=== PATIENT | female | born 1970 | race Caucasian/White ===

== ENCOUNTER 2019-12-11 11:15 | Emergency (ER) | payer OTHER ==
--- NOTE | 2019-12-11 12:57 | RAD REPORT ---
EXAM DESCRIPTION: RAD - Chest Single View - 12/11/2019 12:36 pm CLINICAL HISTORY: Cough;Fever COMPARISON: January 2019 TECHNIQUE: AP portable chest image was obtained 12/11/2019 12:36 pm . FINDINGS: Lung volumes are low. No peripheral mass or consolidation. Interstitial pattern matches co mparison. Heart and vasculature are normal. No measurable pleural effusion and no pneumothorax. No ac jhony bony abnormality seen. No acute aortic findings suspected. IMPRESSION: No acute cardiopulmonary process. No significant interval change.
[2019-12-11] MEDS ORDERED: ACETAMINOPHEN 500 MG TAB ONE (14:16)
--- NOTE | 2019-12-11 14:18 | EDPHYS ---
Physician Documentation [facility] Name: Keisha Stanley Age: 49 yrs Sex: Female : 1970 Arrival Date: 12/11/2019 Time: 11:16 Bed 6 Private MD: Frederick Burton R ED Physician Regis Cruz HPI: 12/10 15:27 This 49 yrs old Female presents to ER via Ambulatory with complaints of ms3 General Weakness, Cough, Fever, Sore Throat. 15:27 The patient or guardian reports cough, that is intermittent, described as mild, with ms3 productive sputum, clear. Onset: The symptoms/episode began/occurred gradually. Severity of symptoms: in the emergency department the symptoms are unchanged. Modifying factors: The symptoms are alleviated by nothing, the symptoms are aggravated by nothing. Associated signs and symptoms: Pertinent positives: fever, rhinorrhea, sore throat. 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 iw Historical: - Allergies: 11:43 Morphine; iw 11:43 Amoxicillin; iw - Home Meds: 11:43 Prozac 40 mg Oral cap 1 cap once daily [Active]; levothyroxine 50 mcg tab 1 tab once iw daily [Active]; acyclovir 800 mg Oral tab twice a day [Active]; pravastatin 20 mg oral tab 1 tab once daily [Active]; pantoprazole 40 mg oral TbEC 1 tab once daily [Active]; meloxicam 15 mg oral tab 1 tab once daily [Active]; baclofen 20 mg Oral tab 1 tab 3 times per day [Active]; Multiple Vitamins oral tab [Active]; Vitamin D Oral daily [Active]; 11:44 magnesium oxide 400 mg oral tab daily [Active]; iw - PMHx: 11:44 COPD; Chronic pain; PCOS; Hypothyroidism; iw - PSHx: 11:44 spinal fusion; iw 11:45 Hernia repair; abdominoplasty; iw - Immunization history:: Adult Immunizations up to date. - Social history:: Smoking status: Patient/guardian denies using tobacco, the patient reports quitting approximately 15 years ago, Patient uses street drugs, marijuana. ROS: 14:20 Eyes: Negative for injury, pain, redness, and discharge, Neck: Negative for injury, ms3 pain, and swelling, Cardiovascular: Negative for chest pain, and palpitations. Abdomen/GI: Negative for abdominal pain, nausea, vomiting, diarrhea, and constipation, Back: Negative for injury and pain, MS/Extremity: Negative for injury and deformity, Skin: Negative for injury, rash, and discoloration, Neuro: Negative for headache, weakness, numbness, tingling. 14:20 Constitutional: Positive for fatigue, fever, malaise. 14:20 ENT: Positive for nasal discharge. 14:20 All other systems are negative. ms3 Exam: 14:20 Constitutional: This is a well developed, well nourished patient who is awake, alert, ms3 and in no acute distress. Eyes: Pupils equal round and reactive to light, extra-ocular motions intact. Lids and lashes normal. Conjunctiva and sclera are non-icteric and not injected. Cornea within normal limits. Periorbital areas with no swelling, redness, or edema. Neck: Trachea midline, no cervical lymphadenopathy. Supple, full range of motion without nuchal rigidity, or vertebral point tenderness. No Meningismus. Chest/axilla: Normal chest wall appearance and motion. Nontender with no deformity. Cardiovascular: Regular rate and rhythm with a normal S1 and S2. No gallops, murmurs, or rubs. Normal PMI, no JVD. No pulse deficits. Respiratory: Lungs have equal breath sounds bilaterally, clear to auscultation and percussion. No rales, rhonchi or wheezes noted. No increased work of breathing, no retractions or nasal flaring. Abdomen/GI: Soft, non-tender, with normal bowel sounds. No distension or tympany. No guarding or rebound. No evidence of tenderness throughout. Back: No spinal tenderness. No costovertebral tenderness. Full range of motion. Skin: Warm, dry with normal turgor. Normal color with no rashes, no lesions, and no evidence of cellulitis. Neuro: Awake and alert, GCS 15, oriented to person, place, time, and situation. Cranial nerves II-XII grossly intact. Motor strength 5/5 in all extremities. Sensory grossly intact. Cerebellar exam normal. Normal gait. Psych: Awake, alert, with orientation to person, place and time. Behavior, mood, and affect are within normal limits. 14:20 ENT: Nose: External nose: Nasal septum: Nasal mucosa: normal, nasal drainage, that is clear, Mouth: Oral mucosa: normal, Tongue: is normal, Posterior pharynx: is normal. Vital Signs: 11:39 BP 174 / 95; Pulse 87; Resp 18; Temp 98.2(TE); Pulse Ox 100% on R/A; Weight 65.77 kg; iw Height 5 ft. 2 in. (157.48 cm); 12:49 Pulse 80; Resp 16; Pulse Ox 97% on R/A; mh5 11:39 Body Mass Index 26.52 (65.77 kg, 157.48 cm) iw MDM: 11:51 Patient medically screened. ms3 14:20 Differential Diagnosis: Influenza Upper Respiratory Infection Sinusitis Other COVID. ms3 Data reviewed: vital signs, nurses notes, lab test result(s), Flu: radiologic studies, plain films. Data interpreted: Pulse oximetry:. Counseling: I had a detailed discussion with the patient and/or guardian regarding: the historical points, exam findings, and any diagnostic results supporting the discharge/admit diagnosis, lab results, radiology results, the need for outpatient follow up, to return to the emergency department if symptoms worsen or persist or if there are any questions or concerns that arise at home. ED course: Discussed negative flu and CXR with pt. Pt to follow up with Dr Altman in 2-3 days. Pt understands/ agrees with plan. All questions answered. Return precautions given. Pt a/o x4, nad, non-toxic, speaking full sentences.. 12/10 12:01 Order name: COVID-19 ms3 12/10 12:01 Order name: Flu; Complete Time: 14:17 ms3 12/10 12:01 Order name: CXR XRAY; Complete Time: 13:30 ms3 Administered Medications: 14:16 Drug: Tylenol 1000 mg Route: PO; jl7 Disposition: 14:20 Co-signature as Attending Physician, Regis Cruz DO. ms3 Disposition: 12/11/19 14:18 Discharged to Home. Impression: Fever, unspecified, Cough, Muscle weakness (generalized). - Condition is Stable. - Discharge Instructions: Fever, Adult, COVID-19. - Medication Reconciliation Form, Thank You Letter, Antibiotic Education, Prescription Opioid Use form. - Follow up: Nasim Altman MD; When: 2 - 3 days; Reason: Re-evaluation by your physician. Signatures: Dispatcher [employer] Elena Helms RN RN iw Elvis Wiley RN RN jl7 Regis Cruz DO DO ms3 Corrections: (The following items were deleted from the chart) 14:49 14:18 12/11/2019 14:18 Discharged to Home. Impression: Fever, unspecified; Cough; iw Muscle weakness (generalized). Condition is Stable. Forms are Medication Reconciliation Form, Thank You Letter, Antibiotic Education, Prescription Opioid Use. Follow up: Nasim Altman; When: 2 - 3 days; Reason: Re-evaluation by your physician. ms3
--- NOTE | 2019-12-11 14:18 | ER ---
Nurse's Notes [facility] Name: Keisha Stanley Age: 49 yrs Sex: Female : 1970 Arrival Date: 12/11/2019 Time: 11:16 Bed 6 Private MD: Frederick Burton R Diagnosis: Fever, unspecified;Cough;Muscle weakness (generalized) Presentation: 12/10 11:39 Chief complaint: Patient states: cough, congestion, sore throat, fatigue, subjective iw fever X 3 days, + nausea, mild SOB, no chest pain. Coronavirus screen: Surgical mask placed on patient. Patient moved to private room, placed in contact and droplet isolation with eye protection until further assessment. Patient reports a cough. Patient reports shortness of breath or difficulty breathing. Patient reports a measured and/or subjective temperature greater than 100.4F. Patient denies travel on a cruise ship or to a country the [facility] currently lists as an affected area. Patient denies contact with known and/or suspected case of COVID-19. Ebola Screen: Patient negative for fever greater than or equal to 101.5 degrees Fahrenheit, and additional compatible Ebola Virus Disease symptoms Patient denies exposure to infectious person. Patient denies travel to an Ebola-affected area in the 21 days before illness onset. No symptoms or risks identified at this time. Initial Sepsis Screen: Does the patient meet any 2 criteria? No. Patient's initial sepsis screen is negative. Does the patient have a suspected source of infection? No. Patient's initial sepsis screen is negative. Risk Assessment: Do you want to hurt yourself or someone else? Patient reports no desire to harm self or others. Onset of symptoms was December 08, 2019. 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 iw Historical: - Allergies: 11:43 Morphine; iw 11:43 Amoxicillin; iw - Home Meds: 11:43 Prozac 40 mg Oral cap 1 cap once daily [Active]; levothyroxine 50 mcg tab 1 tab once iw daily [Active]; acyclovir 800 mg Oral tab twice a day [Active]; pravastatin 20 mg oral tab 1 tab once daily [Active]; pantoprazole 40 mg oral TbEC 1 tab once daily [Active]; meloxicam 15 mg oral tab 1 tab once daily [Active]; baclofen 20 mg Oral tab 1 tab 3 times per day [Active]; Multiple Vitamins oral tab [Active]; Vitamin D Oral daily [Active]; 11:44 magnesium oxide 400 mg oral tab daily [Active]; iw - PMHx: 11:44 COPD; Chronic pain; PCOS; Hypothyroidism; iw - PSHx: 11:44 spinal fusion; iw 11:45 Hernia repair; abdominoplasty; iw - Immunization history:: Adult Immunizations up to date. - Social history:: Smoking status: Patient/guardian denies using tobacco, the patient reports quitting approximately 15 years ago, Patient uses street drugs, marijuana. Screenin:20 Abuse screen: Denies threats or abuse. Denies injuries from another. Nutritional jl7 screening: No deficits noted. Tuberculosis screening: No symptoms or risk factors identified. Fall Risk None identified. Assessment: 12:20 General: Appears in no apparent distress. uncomfortable, Behavior is calm, cooperative, jl7 appropriate for age. Pain: Complains of pain in sore throat. Neuro: Level of Consciousness is awake, alert, obeys commands, Oriented to person, place, time, situation. Cardiovascular: Patient's skin is warm and dry. Respiratory: Airway is patent Respiratory effort is even, unlabored, Respiratory pattern is regular, symmetrical. EENT: Throat is clear. Vital Signs: 11:39 BP 174 / 95; Pulse 87; Resp 18; Temp 98.2(TE); Pulse Ox 100% on R/A; Weight 65.77 kg; iw Height 5 ft. 2 in. (157.48 cm); 12:49 Pulse 80; Resp 16; Pulse Ox 97% on R/A; mh5 11:39 Body Mass Index 26.52 (65.77 kg, 157.48 cm) iw ED Course: 11:16 Patient arrived in ED. am2 11:16 Frederick Burton MD is Private Physician. am2 11:41 Triage completed. iw 11:45 Arm band placed on. iw 11:50 Regis Cruz DO is Attending Physician. ms3 12:08 Elvis Wiley, JULISSA is Primary Nurse. jl7 12:20 Flu and/or RSV swab sent to lab. COVID-19 swab sent to lab. jl7 12:37 CXR XRAY In Process Unspecified. EDMS 12:49 Patient has correct armband on for positive identification. Placed in gown. Bed in low mh5 position. Call light in reach. Side rails up X 1. Warm blanket given. Pulse ox on. NIBP on. 14:17 Nasim Altman MD is Referral Physician. ms3 Administered Medications: 14:16 Drug: Tylenol 1000 mg Route: PO; jl7 Outcome: 14:18 Discharge ordered by . ms3 14:49 Patient left the ED. iw Addendum: 12/13/2019 18:30 Addendum: Other Pt notified of negative COVID results, advised to remain quarantined h b until fever free for 3 days without medication or 7 days of s/s onset and to return to ED if s/s worsen. Pt verbalized understanding of instructions. Signatures: Dispatcher [employer] EDMS Elena Gaston RN RN Josie Wang RN RN hb Martinez, [facility] Elvis Wiley RN RN jl7 Mary Rojas Marcus, DO DO ms3 Corrections: (The following items were deleted from the chart) 12/10 12:53 12:20 Flu and/or RSV swab sent to lab. COVID-19 sent to lab jl7 jl7
[2019-12-11 15:06] VITALS: BP 174/95; TEMP 98.2
[2019-12-11 15:08] VITALS: O2SAT 97
== END 2019-12-11 14:49 | disposition home or self-care (01) ==
LOC: ER 11:15
DX: R05 Cough (principal); Z20.828 Contact with and (suspected) exposure to other viral communicable diseases; M62.81 Muscle weakness (generalized); E03.9 Hypothyroidism, unspecified; J44.9 Chronic obstructive pulmonary disease, unspecified; G89.29 Other chronic pain; Z88.1 Allergy status to other antibiotic agents; Z88.5 Allergy status to narcotic agent
CPT/HCPCS: 87804 ×2; 71045; 99284; U0001

== ENCOUNTER 2020-10-02 12:51 | Emergency (ER) | payer OTHER ==
[2020-10-02] MEDS ORDERED: FENTANYL CITR 100 MCG/2 ML ONE ×2 (14:03→17:29)
[2020-10-02] MEDS ORDERED: ONDANSETRON 4 MG/2 ML VIAL ONE (14:03)
[2020-10-02] MEDS ORDERED: TETANUS & DIPHTHERIA TOX,ADULT 0.5 ML VIAL ONE (14:04)
[2020-10-02] MEDS ORDERED: NA CHLORIDE 0.9% 1,000 ML ONE (14:04)
[2020-10-02 14:19] LABS: Absolute Lymphocytes (CBC) 0.9 K/uL (0.7-4.9); Basophils % 0.1 % (0-1.3); Hematocrit 36.8 % (36.0-45.0); Lymphocytes % 8.3 % (15.3-44.8); RBC Red Blood Cell Count 3.67 M/uL (3.86-4.86)
[2020-10-02 14:32] LABS: Albumin 3.5 g/dL (3.4-5.0); Bilirubin Total 0.9 mg/dL (0.2-1.0); Potassium 3.2 mmol/L (3.5-5.1); Protein, Total 8.4 g/dL (6.4-8.2)
--- NOTE | 2020-10-02 14:33 | RAD REPORT ---
EXAM DESCRIPTION: CT - Soft Tissue Neck W/Contr - 10/02/2020 2:16 pm CLINICAL HISTORY: Mandibular pain/neck pain COMPARISON: None. TECHNIQUE: Computed axial tomography of the neck was obtained. 50 cc Isovue 300 was administered in travenously. Coronal and sagittal reconstruction was performed. All CT scans are performed using dose optimization technique as appropriate and may include automated exposure control or mA/KV adjustment according to patient size. FINDINGS: A 5 millimeter air bubble is present within the subcutaneous tissue adjacent to the right mandible at the site of prior incision. A 10 x 7 millimeter ill-defined fluid collection within the a nterior subcutaneous tissue midline adjacent to the mandible. No bony destructive lesions seen The pharynx, tongue base, larynx and subglottic trachea appear unremarkable The parotid, submandibular and thyroid glands appear unremarkable. Fluid within the sinuses/mastoids is not noted. Mild right upper lobe ground-glass opacity indicates a mild area of alveolitis IMPRESSION: 5 millimeter air bubble within the anterior subcutaneous tissues adjacent to the right m andible probably related to previous incision. 10 x 7 millimeter fluid collection within the anterior subcutaneous tissue midline probably small residual abscess or phlegmonous collection
--- NOTE | 2020-10-02 16:37 | EDPHYS ---
Physician Documentation [facility] Name: Keisha Stanley Age: 50 yrs Sex: Female : 1970 Arrival Date: 10/02/2020 Time: 12:55 Bed 5 Private MD: Frederick Burton R ED Physician Haja Batista HPI: 10/02 13:36 This 50 yrs old Female presents to ER via Ambulatory with complaints of pm1 Abscess. 13:36 the patient presents with a swollen area of the chin. pm1 13:36 Onset: The symptoms/episode began/occurred 5 day(s) ago. Possible cause(s): unknown. pm1 Associated signs and symptoms: Pertinent negatives: discharge, drainage, fever, vomiting, sore throat. Severity of symptoms: in the emergency department the symptoms are actually worse. The patient has not experienced similar symptoms in the past. The patient has been recently seen by a physician: 2 day(s) ago, with similar presenting complaints, CT scan was done, was given a prescription for antibiotics, I\T\D performed. Patient with abscess to chin that started about 5 days ago. Went to [place] ER on Saturday and had a CT, subsequently abscess was drained and packed. Discharged home with clindamycin and was started on another antibiotic (patient unable to fully recall but believes it is bactrim) yesterday. Reports improvement to chin yesterday but swelling and pain to chin started this AM. Historical: - Allergies: 13:00 Amoxicillin; ll1 13:00 Morphine; ll1 - PMHx: 13:00 COPD; Hypothyroidism; Chronic pain; PCOS; ll1 - PSHx: 13:00 spinal fusion; Hernia repair; abdominoplasty; ll1 - Immunization history:: Flu vaccine is up to date. - Social history:: Smoking status: Patient denies any tobacco usage or history of. ROS: 13:36 Constitutional: Negative for fever, chills, and weight loss, ENT: Negative for injury, pm1 pain, and discharge, Neck: Negative for injury, pain, and swelling, Cardiovascular: Negative for chest pain, palpitations, and edema, Respiratory: Negative for shortness of breath, cough, wheezing, and pleuritic chest pain, Abdomen/GI: Negative for abdominal pain, nausea, vomiting, diarrhea, and constipation, MS/Extremity: Negative for injury and deformity. 13:36 Neuro: Negative for headache, weakness, numbness, tingling, and seizure. 13:36 Skin: Positive for swelling, of the chin. Exam: 13:36 Constitutional: This is a well developed, well nourished patient who is awake, alert, pm1 and in no acute distress. Head/Face: Normocephalic, atraumatic. 13:36 Cardiovascular: Exam negative for acute changes, Rate: normal, Rhythm: regular, Pulses: no pulse deficits are appreciated. 13:36 Respiratory: Exam negative for acute changes, respiratory distress, shortness of breath. 13:36 Skin: Appearance: normal except for affected area, swelling, noted on the chin, that are mild, cellulitis, is not appreciated, on the face and chin. Vital Signs: 13:00 BP 156 / 95; Pulse 118; Resp 17; Temp 97.0; Pulse Ox 98% ; Weight 68.04 kg; Height 5 ll1 ft. 2 in. (157.48 cm); Pain 5/10; 14:26 BP 145 / 83; Pulse 101; Resp 16; Pulse Ox 100% on R/A; sv 15:02 BP 127 / 71; Pulse 94; Resp 16; Pulse Ox 97% on R/A; sv 15:46 BP 136 / 92; Pulse 105; Resp 16; Pulse Ox 100% ; sv 16:04 BP 145 / 91; Pulse 88; Resp 16; Pulse Ox 100% on R/A; sv 13:00 Body Mass Index 27.44 (68.04 kg, 157.48 cm) ll1 MDM: 13:26 Patient medically screened. pm1 16:32 ED course: Needle aspiration performed to area of swelling at anterior chin. No pm1 drainage or purulence present. Impression phlegmon versus abscess. 16:35 Data reviewed: vital signs. Data interpreted: Pulse oximetry: on room air is 100 %. pm1 Interpretation: normal. Counseling: I had a detailed discussion with the patient and/or guardian regarding: the historical points, exam findings, and any diagnostic results supporting the discharge/admit diagnosis, radiology results, the need for outpatient follow up, to return to the emergency department if symptoms worsen or persist or if there are any questions or concerns that arise at home. 10/02 13:34 Order name: Blood Culture Adult (2) pm1 10/02 13:34 Order name: CBC with Diff pm1 10/02 13:34 Order name: CT Facial Bones W/ Con \T\ Mpr pm1 10/02 13:34 Order name: CMP pm1 10/02 14:20 Order name: CBC with Automated Diff; Complete Time: 14:21 EDMS 10/02 14:32 Order name: Comprehensive Metabolic Panel; Complete Time: 15:10 EDMS 10/02 13:34 Order name: CT Soft Tissue Neck W/contr pm1 10/02 13:34 Order name: IV Saline Lock; Complete Time: 14:10 pm1 10/02 14:34 Order name: CT; Complete Time: 15:10 EDMS Administered Medications: 14:02 Drug: Zofran (Ondansetron) 4 mg Route: IVP; Site: right antecubital; sv 15:00 Follow up: Response: No adverse reaction sv 14:04 Drug: fentaNYL (PF) 50 mcg {Note: rass1.} Route: IVP; Site: right antecubital; sv 15:00 Follow up: Response: No adverse reaction; RASS: Alert and Calm (0) sv 14:05 Drug: Tetanus-Diphtheria Toxoid Adult 0.5 ml {Fire 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 Exp: sv 12/03/2021. Lot #: [id number]. } Route: IM; Site: right deltoid; 15:00 Follow up: Response: No adverse reaction sv 14:26 Drug: NS 0.9% 1000 ml Route: IV; Rate: 1000 ml; Site: right antecubital; sv 15:50 Follow up: Response: No adverse reaction; IV Status: Completed infusion; IV Intake: sv 1000ml 17:19 Follow up: Response: No adverse reaction; IV Status: Completed infusion; IV Intake: sv 500ml 17:19 Drug: fentaNYL (PF) 50 mcg {Note: rass1.} Route: IVP; Site: right antecubital; sv 17:19 Follow up: Response: Medication administered at discharge.; RASS: Restless (+1) sv Disposition: 10/02/20 16:37 Discharged to Home. Impression: Phlegmonous collection on chin. - Condition is Stable. - Discharge Instructions: Skin Abscess. - Prescriptions for Diclofenac Sodium 75 mg Oral Tablet Sustained Release - take 1 tablet by ORAL route 2 times per day; 30 tablet. - Medication Reconciliation Form, Thank You Letter, Antibiotic Education, Prescription Opioid Use form. - Follow up: Emergency Department; When: As needed; Reason: Worsening of condition. Follow up: Private Physician; When: 2 - 3 days; Reason: Recheck today's complaints, Continuance of care, Re-evaluation by your physician. - Problem is new. - Symptoms have improved. Addendum: 10/07/2020 19:20 Co-signature as Attending Physician, Haja Batista MD I agree with the assessment and t w4 plan of care. Signatures: Dispatcher [employer] EDMS Sharlene Deras, RN RN sv Antony Coleman, WASHHOUSE HAND WASHHOUSE HAND pm1 Haja Batista MD MD tw4 Lion Bang RN RN ll1 Corrections: (The following items were deleted from the chart) 10/02 17:20 16:37 10/02/2020 16:37 Discharged to Home. Impression: Phlegmonous collection on chin. sv Condition is Stable. Forms are Medication Reconciliation Form, Thank You Letter, Antibiotic Education, Prescription Opioid Use. Follow up: Emergency Department; When: As needed; Reason: Worsening of condition. Follow up: Private Physician; When: 2 - 3 days; Reason: Recheck today's complaints, Continuance of care, Re-evaluation by your physician. Problem is new. Symptoms have improved. pm1
--- NOTE | 2020-10-02 16:37 | ER ---
Nurse's Notes [facility] Name: Keisha Stanley Age: 50 yrs Sex: Female : 1970 Arrival Date: 10/02/2020 Time: 12:55 Bed 5 Private MD: Frederick Burton R Diagnosis: Phlegmonous collection on chin Presentation: 10/02 13:00 Chief complaint: Patient states: 1. Abscess drained to chin area Saturday at [facility] by Dr. tanya Brown. Site was getting better yesterday, but got bigger and more painful today. No known fever. 2. Nasal burning with a lot of sneezing since Saturday. Coronavirus screen: Client denies travel out of the [place] in the last 14 days. At this time, the client does not indicate any symptoms associated with coronavirus-19. Ebola Screen: Patient denies travel to an Ebola-affected area in the 21 days before illness onset. Initial Sepsis Screen: Does the patient meet any 2 criteria? No. Patient's initial sepsis screen is negative. Does the patient have a suspected source of infection? Yes: Skin breakdown/wound. Risk Assessment: Do you want to hurt yourself or someone else? Patient reports no desire to harm self or others. Onset of symptoms was September 27, 2020. 13:00 Method Of Arrival: Ambulatory ll1 13:00 Acuity: CARA 3 ll1 Historical: - Allergies: 13:00 Amoxicillin; ll1 13:00 Morphine; ll1 - PMHx: 13:00 COPD; Hypothyroidism; Chronic pain; PCOS; ll1 - PSHx: 13:00 spinal fusion; Hernia repair; abdominoplasty; ll1 - Immunization history:: Flu vaccine is up to date. - Social history:: Smoking status: Patient denies any tobacco usage or history of. Screenin:06 Abuse screen: Denies threats or abuse. Denies injuries from another. Nutritional sv screening: No deficits noted. Tuberculosis screening: No symptoms or risk factors identified. Fall Risk None identified. Assessment: 13:50 General: Appears in no apparent distress. uncomfortable, well groomed, well developed, sv Behavior is calm, cooperative, appropriate for age. Pain: Complains of pain in mouth, chin, right jaw and left jaw Pain currently is 5 out of 10 on a pain scale. Quality of pain is described as tender, throbbing, Pain began 2-3 days ago. Is continuous, Aggravated by touch. Neuro: Level of Consciousness is awake, alert, obeys commands, Oriented to person, place, time, situation, Moves all extremities. Full function Gait is steady, Speech is normal. Respiratory: Airway is patent Respiratory effort is even, unlabored, Respiratory pattern is regular, symmetrical. Derm: Skin is pink, warm \T\ dry. Abscess located on chin has no drainage, is red, lanced on Saturday by Dr Brown at [facility]. Pt reports that since then the swelling has increased around the site up to around her bilateral jaw line. Musculoskeletal: Range of motion: intact in all extremities, Swelling present in chin, right jaw and left jaw. 14:30 Reassessment: Patient appears in no apparent distress at this time. Patient and/or sv family updated on plan of care and expected duration. Pain level reassessed. Patient is alert, oriented x 3, equal unlabored respirations, skin warm/dry/pink. 16:30 Reassessment: Patient appears in no apparent distress at this time. No changes from sv previously documented assessment. Patient and/or family updated on plan of care and expected duration. Pain level reassessed. Patient is alert, oriented x 3, equal unlabored respirations, skin warm/dry/pink. Antony BUSINESS PROCESS ENGINEER at the bedside. 16:55 Reassessment: Pt requesting pain medication, waiting for Antony BUSINESS PROCESS ENGINEER to return to the sv desk. 17:19 Reassessment: Patient appears in no apparent distress at this time. No changes from sv previously documented assessment. Patient and/or family updated on plan of care and expected duration. Pain level reassessed. Patient is alert, oriented x 3, equal unlabored respirations, skin warm/dry/pink. Vital Signs: 13:00 BP 156 / 95; Pulse 118; Resp 17; Temp 97.0; Pulse Ox 98% ; Weight 68.04 kg; Height 5 ll1 ft. 2 in. (157.48 cm); Pain 5/10; 14:26 BP 145 / 83; Pulse 101; Resp 16; Pulse Ox 100% on R/A; sv 15:02 BP 127 / 71; Pulse 94; Resp 16; Pulse Ox 97% on R/A; sv 15:46 BP 136 / 92; Pulse 105; Resp 16; Pulse Ox 100% ; sv 16:04 BP 145 / 91; Pulse 88; Resp 16; Pulse Ox 100% on R/A; sv 13:00 Body Mass Index 27.44 (68.04 kg, 157.48 cm) ll1 ED Course: 12:55 Patient arrived in ED. rg4 12:55 Frederick Burton MD is Private Physician. rg4 12:59 Arm band placed on. ll1 13:03 Triage completed. ll1 13:05 Sharlene Deras RN is Primary Nurse. sv 13:06 Patient has correct armband on for positive identification. Bed in low position. Call sv light in reach. Door closed. Head of bed elevated. 13:12 Antony Coleman NP is PHCP. pm1 13:12 Haja Batista MD is Attending Physician. pm1 13:50 First set of blood cultures drawn by me. Inserted saline lock: 20 gauge in right sv antecubital area, using aseptic technique. Blood collected. Flushed right antecubital with 5 ml normal saline. 14:00 Second set of blood cultures drawn by me. sv 14:[address] via wheelchair. sv 14:20 Patient moved back from CT. sv 14:21 CMP Sent. sv 14:21 CBC with Diff Sent. sv 14:21 CT Soft Tissue Neck W/contr Sent. sv 14:21 CT Facial Bones W/ Con \T\ Mpr Sent. sv 14:21 Blood Culture Adult (2) Sent. sv 15:47 Awaiting disposition, Awaiting re-evaluation by ER provider. sv 17:19 No provider procedures requiring assistance completed. IV discontinued, intact, sv bleeding controlled, No redness/swelling at site. Pressure dressing applied. Administered Medications: 14:02 Drug: Zofran (Ondansetron) 4 mg Route: IVP; Site: right antecubital; sv 15:00 Follow up: Response: No adverse reaction sv 14:04 Drug: fentaNYL (PF) 50 mcg {Note: rass1.} Route: IVP; Site: right antecubital; sv 15:00 Follow up: Response: No adverse reaction; RASS: Alert and Calm (0) sv 14:05 Drug: Tetanus-Diphtheria Toxoid Adult 0.5 ml {Seat Cover Cutter: [employer]. Exp: sv 12/03/2021. Lot #: [id number]. } Route: IM; Site: right deltoid; 15:00 Follow up: Response: No adverse reaction sv 14:26 Drug: NS 0.9% 1000 ml Route: IV; Rate: 1000 ml; Site: right antecubital; sv 15:50 Follow up: Response: No adverse reaction; IV Status: Completed infusion; IV Intake: sv 1000ml 17:19 Follow up: Response: No adverse reaction; IV Status: Completed infusion; IV Intake: sv 500ml 17:19 Drug: fentaNYL (PF) 50 mcg {Note: rass1.} Route: IVP; Site: right antecubital; sv 17:19 Follow up: Response: Medication administered at discharge.; RASS: Restless (+1) sv Intake: 15:50 IV: 1000ml; Total: 1000ml. sv 17:19 IV: 500ml; Total: 1500ml. sv Outcome: 16:37 Discharge ordered by MD. pm1 17:19 Discharged to home ambulatory, with family. sv 17:19 Condition: stable 17:19 Discharge instructions given to patient, Instructed on discharge instructions, follow up and referral plans. medication usage, wound care, Demonstrated understanding of instructions, follow-up care, medications, wound care, Prescriptions given X 1. 17:20 Patient left the ED. sv Signatures: Sharlene Deras RN RN sv Antony Coleman NP BUSINESS PROCESS ENGINEER pm1 Tammy Vizcarra rg4 Lion Bang RN RN ll1 Corrections: (The following items were deleted from the chart) 13:03 13:00 Chief complaint: Patient states: Abscess drained to chin area Tree at [place] by ll1 Dr. Brown. Site was getting better yesterday, but got bigger and more painful today. No known fever. ll1 13:03 13:00 BP 156 / 95; Pulse 122bpm; Resp 17bpm; Pulse Ox 98%; Temp 97.0F; 68.04 kg; Height ll1 5 ft. 2 in.; BMI: 27.4; Pain 5/10; ll1
[2020-10-02 17:24] VITALS: TEMP 97
[2020-10-02 17:28] VITALS: O2SAT 100
[2020-10-02 17:29] VITALS: BP 145/91
== END 2020-10-02 17:20 | disposition home or self-care (01) ==
LOC: ER 12:51
DX: L02.01 Cutaneous abscess of face (principal); Z23 Encounter for immunization; Z88.1 Allergy status to other antibiotic agents; Z88.5 Allergy status to narcotic agent
CPT/HCPCS: 96361; 87040 ×2; 85025; 36415; 80053; 70491; 90471; 90714; 96375; 96374; 99284; Q9967; J3010 ×2; J7030; J2405

== ENCOUNTER 2020-10-09 11:51 | Emergency (ER) | payer OTHER ==
[2020-10-09 13:40] LABS: Absolute Lymphocytes (CBC) 1.4 K/uL (0.7-4.9); Basophils % 0.3 % (0-1.3); Hematocrit 36.2 % (36.0-45.0); MPV 7.6 fL (7.6-11.3); RBC Red Blood Cell Count 3.54 M/uL (3.86-4.86)
[2020-10-09] MEDS ORDERED: FENTANYL CITR 100 MCG/2 ML ONE (13:42)
[2020-10-09 13:43] LABS: Albumin 3.5 g/dL (3.4-5.0); Bilirubin Total 0.5 mg/dL (0.2-1.0); Potassium 3.4 mmol/L (3.5-5.1); Protein, Total 9.1 g/dL (6.4-8.2)
[2020-10-09] MEDS ORDERED: TETANUS & DIPHTHERIA TOX,ADULT 0.5 ML VIAL ONE (14:08)
[2020-10-09 14:23] LABS: Platelet Estimate INCR
[2020-10-09 14:24] LABS: Blood Morphology Comment NOT SEEN (NOT SEEN); Platelets, Giant NOTED
--- NOTE | 2020-10-09 14:31 | RAD REPORT ---
EXAM DESCRIPTION: CT - Soft Tissue Neck W/Contr - 10/09/2020 1:53 pm CLINICAL HISTORY: right sided facial swelling COMPARISON: Soft Tissue Neck W/Contr dated 10/02/2020 TECHNIQUE: During dynamic enhancement using 100 milliliters nonionic IV contrast, axial 5 millimeter thick images of the neck were obtained. All CT scans are performed using dose optimization technique as appropriate and may include automated exposure control or mA/KV adjustment according to patient size. FINDINGS: Intracranial portion of the exam is unremarkable. No globe or orbital content abnormality. Mastoid air cells and paranasal sinuses are clear. No pharyngeal mucosal mass. Parapharyngeal fat is normal in appearance. No tonsil or tongue base abno rmality seen. The epiglottis is normal. No vocal cord abnormality seen. No thyroid gland or parotid g land abnormality identified. No abnormality along the floor the mouth. At the abscess drainage site midline submental region there is no new air or fluid collection identified. Abnormal low-density collection is present surrounding the angle of the mandible and ramus extending superiorly to the level of the zygomatic arch. This abnormal fluid or low-density collection is posit ioned between the bone of the mandible and the masseter and pterygoid muscles. Small low-density kyler ection is present along the medial cortical margin of the mandible near the posterior molar. Given the history of a recent facial abscess this is most likely abscess in the job cost estimator space. Patient has a few reactive lymph nodes in the neck soft tissues. No neck lymph node abscess. 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 Low-density collection is present surrounding the a ngle of the mandible and ramus. Low-density collection is positioned between the bone of the mandible and the masseter and pterygoid muscles. Abscess extends superiorly to reach the level of the zygomatic arch. Additional small absces s collection is present along the inner table of the right-side mandible at the level of the posterio r molar. No abscess or abnormal collection at the original site midline submental region.
[2020-10-09] MEDS ORDERED: VANCOMYCIN/NS 1 gm 1 GM/250 ML BAG IVPB ONE (15:00)
[2020-10-09] MEDS ORDERED: Levofloxacin 750mg IV 750 MG/150 ML BAG IV ONE (15:12)
[2020-10-09] MEDS ORDERED: DIPHENHYDRAMINE 50 MG/ML VIAL ONE ×2 (17:43→19:55)
[2020-10-09] MEDS ORDERED: MORPHINE 4 MG/ML SYR ONE ×2 (17:43→19:52)
[2020-10-09] MEDS ORDERED: HYDROMORPHONE HCL 0.5 MG/0.5 ML INJ ONE (21:12)
--- NOTE | 2020-10-09 21:49 | ER ---
Nurse's Notes [facility] Name: Keisha Stanley Age: 50 yrs Sex: Female : 1970 Arrival Date: 10/09/2020 Time: 11:54 Bed 14 Private MD: Diagnosis: Facial Abscess Presentation: 10/09 12:17 Chief complaint: Patient states: Had an abscess on my chin drained at [place]. Came here ca1 last Saturday10/01/2020 because my face on the R side is still swollen. Symptoms are worsening, extreme pain on my R side of face, face still swollen and has spread to under the R ear and down my neck. Coronavirus screen: Client denies travel out of the [place] in the last 14 days. At this time, the client does not indicate any symptoms associated with coronavirus-19. Ebola Screen: Patient negative for fever greater than or equal to 101.5 degrees Fahrenheit, and additional compatible Ebola Virus Disease symptoms Patient denies exposure to infectious person. Patient denies travel to an Ebola-affected area in the 21 days before illness onset. No symptoms or risks identified at this time. Initial Sepsis Screen: Does the patient meet any 2 criteria? No. Patient's initial sepsis screen is negative. Does the patient have a suspected source of infection? No. Patient's initial sepsis screen is negative. Risk Assessment: Do you want to hurt yourself or someone else? Patient reports no desire to harm self or others. Onset of symptoms was October 09, 2020. 12:17 Method Of Arrival: Ambulatory ca1 12:17 Acuity: CARA 3 ca1 CARD BOXER: 12:22 [facility] 10/07/2020 ca1 Historical: - Allergies: 12:22 Amoxicillin; ca1 12:22 Morphine; ca1 - PMHx: 12:22 Chronic pain; COPD; Hypothyroidism; PCOS; ca1 - PSHx: 12:22 spinal fusion; Hernia repair; abdominoplasty; ca1 - Immunization history:: Flu vaccine is up to date. - Social history:: Smoking status: Patient/guardian denies using tobacco, the patient reports quitting approximately 15 years ago. Screenin:32 Abuse screen: Denies threats or abuse. Denies injuries from another. Nutritional jl7 screening: No deficits noted. Tuberculosis screening: No symptoms or risk factors identified. Fall Risk IV access (20 points). Total Fonseca Fall Scale indicates No Risk (0-24 pts). Assessment: 02:30 Reassessment: Patient and/or family updated on plan of care and expected duration. Pain ll2 level reassessed. Patient is alert, oriented x 3, equal unlabored respirations, skin warm/dry/pink. 13:15 General: Appears in no apparent distress. uncomfortable, Behavior is cooperative, jl7 appropriate for age, crying. Pain: Complains of pain in face and mouth Pain currently is 7 out of 10 on a pain scale. Neuro: Level of Consciousness is awake, alert, obeys commands, Oriented to person, place, time, situation. Cardiovascular: Patient's skin is warm and dry. Respiratory: Airway is patent Respiratory effort is even, unlabored, Respiratory pattern is regular, symmetrical. Derm: Skin is pink, warm \T\ dry. 14:30 Reassessment: Patient appears in no apparent distress at this time. No changes from jl7 previously documented assessment. Patient and/or family updated on plan of care and expected duration. Pain level reassessed. Patient is alert, oriented x 3, equal unlabored respirations, skin warm/dry/pink. 15:30 Reassessment: Patient appears in no apparent distress at this time. No changes from jl7 previously documented assessment. Patient and/or family updated on plan of care and expected duration. Pain level reassessed. Patient is alert, oriented x 3, equal unlabored respirations, skin warm/dry/pink. 16:30 Reassessment: Patient appears in no apparent distress at this time. No changes from jl7 previously documented assessment. Patient and/or family updated on plan of care and expected duration. Pain level reassessed. Patient is alert, oriented x 3, equal unlabored respirations, skin warm/dry/pink. 17:32 Reassessment: Patient appears in no apparent distress at this time. Patient and/or iw family updated on plan of care and expected duration. Pain level reassessed. Patient is alert, oriented x 3, equal unlabored respirations, skin warm/dry/pink. 18:30 Reassessment: Patient appears in no apparent distress at this time. Patient and/or jl7 family updated on plan of care and expected duration. Pain level reassessed. Patient is alert, oriented x 3, equal unlabored respirations, skin warm/dry/pink. Pain decreased, rated 6/10 at this time. 19:40 Reassessment: Patient and/or family updated on plan of care and expected duration. Pain ll2 level reassessed. Patient is alert, oriented x 3, equal unlabored respirations, skin warm/dry/pink. 20:45 Reassessment: Patient and/or family updated on plan of care and expected duration. Pain ll2 level reassessed. Patient is alert, oriented x 3, equal unlabored respirations, skin warm/dry/pink. 21:45 Reassessment: No changes from previously documented assessment. Patient and/or family ll2 updated on plan of care and expected duration. Pain level reassessed. Patient is alert, oriented x 3, equal unlabored respirations, skin warm/dry/pink. 22:50 Reassessment: Patient and/or family updated on plan of care and expected duration. Pain ll2 level reassessed. Patient is alert, oriented x 3, equal unlabored respirations, skin warm/dry/pink. 23:50 Reassessment: Patient and/or family updated on plan of care and expected duration. Pain ll2 level reassessed. Patient is alert, oriented x 3, equal unlabored respirations, skin warm/dry/pink. 10/10 00:50 Reassessment: Patient and/or family updated on plan of care and expected duration. Pain ll2 level reassessed. Patient is alert, oriented x 3, equal unlabored respirations, skin warm/dry/pink. 01:35 Reassessment: Patient and/or family updated on plan of care and expected duration. Pain ll2 level reassessed. Patient is alert, oriented x 3, equal unlabored respirations, skin warm/dry/pink. 02:30 Reassessment: Patient and/or family updated on plan of care and expected duration. Pain ll2 level reassessed. Patient is alert, oriented x 3, equal unlabored respirations, skin warm/dry/pink. 03:30 Reassessment: Patient and/or family updated on plan of care and expected duration. Pain ll2 level reassessed. Patient is alert, oriented x 3, equal unlabored respirations, skin warm/dry/pink. 04:45 Reassessment: Patient and/or family updated on plan of care and expected duration. Pain ll2 level reassessed. Patient is alert, oriented x 3, equal unlabored respirations, skin warm/dry/pink. pt resting in bed. 06:10 Reassessment: Patient and/or family updated on plan of care and expected duration. Pain ll2 level reassessed. Patient is alert, oriented x 3, equal unlabored respirations, skin warm/dry/pink. 08:05 Reassessment: Pt complaining of 10/10 pain. Verbal order received. Pain med given. Up dm14 to BR to void. 08:05 Reassessment: Pt more comfortable at this time. V/S stable. Preparing patient for dm14 transfer. Vital Signs: 10/09 12:17 BP 133 / 83; Pulse 108; Resp 16 S; Temp 97.1(TE); Pulse Ox 100% on R/A; Weight 63.5 kg ca1 (R); Height 5 ft. 2 in. (157.48 cm) (R); Pain 7/10; 13:32 BP 132 / 77; Pulse 75; Resp 15; Pulse Ox 99% ; jl7 14:59 BP 143 / 91; Pulse 81; Resp 16; Temp 97.6(TE); Pulse Ox 100% on R/A; mh5 18:30 BP 154 / 89; Pulse 75; Resp 15; Pulse Ox 100% ; Pain 6/10; jl7 19:40 BP 154 / 74; Pulse 120; Resp 20; Pulse Ox 100% on R/A; ll2 20:48 BP 154 / 74; Pulse 120; Resp 20; Pulse Ox 100% on R/A; ll2 21:45 BP 127 / 75; Pulse 73; Resp 18; Pulse Ox 100% on R/A; ll2 22:45 BP 127 / 88; Pulse 85; Resp 16; Pulse Ox 98% on R/A; ll2 23:45 BP 109 / 72; Pulse 87; Resp 20; Pulse Ox 97% on R/A; ll2 10/10 01:37 BP 108 / 72; Pulse 122; Resp 20; Pulse Ox 100% on R/A; ll2 08:46 BP 137 / 84; Pulse 80; Temp 98.6; Pulse Ox 96% ; Pain 6/10; dm14 10/09 12:17 Body Mass Index 25.61 (63.50 kg, 157.48 cm) ca1 ED Course: 10/09 11:54 Patient arrived in ED. as 12:21 Triage completed. ca1 12:22 Arm band placed on right wrist. ca1 12:57 Elvis Wiley, JULISSA is Primary Nurse. jl7 13:00 Олег Valencia PA is PHCP. jmm 13:00 Claude Longo MD is Attending Physician. m 13:32 Patient has correct armband on for positive identification. Bed in low position. Call jl7 light in reach. Side rails up X 1. Pulse ox on. NIBP on. 13:32 Initial lab(s) drawn, by me, sent to lab. Inserted saline lock: 22 gauge in right jl7 antecubital area, using aseptic technique. Blood collected. 13:53 Soft Tissue Neck W/Contr CT In Process Unspecified. EDMS 15:31 attempted to initiate a transfer with Jean-Paul from [facility]/ they do eb not have OMF at their facilities. 15:38 attempted to initiate a transfer with Luis Angel from the [facility] Transfer center/ their eb facility is on diversion as is going to have to decline the patient in transfer. 15:48 attempted to initiate a transfer with [facility] / they are having to decline the eb transfer due to their facility being on diversion. 16:20 initiated a transfer with Ashlee from the [facility] transfer center. eb 16:31 per Ashlee from the [facility] transfer center/ her [facility] and [facility] eb facilities are on diversion and will have to decline the patient in transfer. 17:10 initiated a transfer with [facility]/ they are at capacity and will have to eb decline. 17:15 initiated a transfer with Cristina from the [facility]/. eb 17:22 Humberto from the [facility] called to decline the patient in transfer/ eb they are at capacity. 18:41 Called [facility] for placement assistance and spoke with Ashley. Stated that there were a few tt3 beds available in the [facility] and provided me with [facility]'s number and [facility]'s number [phone]. 18:57 Initiated transfer at [facility] with Sharlene. Stated they only had tt3 trauma concrete precast moulder so they didn't have the services needed. 19:55 Tried to initiate transfer at [facility] and the decorating machine operator took the info and stated tt3 she would be in touch with their transfer center and have someone from the transfer center call back. 20:09 Josy from [facility] transfer center called to get pt info and clinical info. tt3 Asked for pt chart to be faxed to [phone]. 10/10 09:24 No provider procedures requiring assistance completed. Inserted Inserted by night dm14 shift. #22 in the Rt AC, Site clear and patent. 19:07 Patient transferred, IV remains in place. dm14 Administered Medications: 10/09 13:30 Drug: fentaNYL (PF) 50 mcg Route: IVP; Site: right antecubital; jl7 14:57 Drug: LevaQUIN 750 mg Volume: 150 ml; Route: IVPB; Infused Over: 90 mins; Site: right jl7 antecubital; 15:20 Drug: vancoMYCIN 1 grams Route: IVPB; Infused Over: 2 hrs; Site: right antecubital; jl7 17:34 Drug: morphine 4 mg Route: IVP; Site: right antecubital; iw 21:02 Follow up: Response: No adverse reaction ll2 17:34 Drug: Benadryl 12.5 mg Route: IVP; Site: right antecubital; iw 21:02 Follow up: Response: No adverse reaction ll2 19:40 Drug: morphine 4 mg Route: IVP; Site: right antecubital; ll2 20:40 Follow up: Response: No adverse reaction ll2 19:40 Drug: Benadryl 12.5 mg Route: IVP; Site: right antecubital; ll2 20:40 Follow up: Response: No adverse reaction ll2 21:05 Drug: Dilaudid 0.5 mg Route: IVP; Site: right antecubital; ll2 22:05 Follow up: Response: No adverse reaction ll2 10/10 01:34 Drug: Dilaudid 0.5 mg Route: IVP; Site: right antecubital; ll2 02:30 Follow up: Response: No adverse reaction ll2 03:00 Drug: vancoMYCIN 1 grams Route: IVPB; Infused Over: 2 hrs; Site: right antecubital; ll2 04:23 Follow up: Response: No adverse reaction; IV Status: Completed infusion; IV Intake: ll2 250ml 08:05 Drug: Dilaudid 0.5 mg Route: IVP; Site: right antecubital; dm14 08:46 Follow up: BP 137 / 84; Pulse 80 bpm; Temp 98.6; Pulse Ox 96% ; Pain /10 Adult; dm14 Response: No adverse reaction; Pain is decreased Intake: 04:23 IV: 250ml; Total: 250ml. ll2 Outcome: 10/09 21:48 ER care complete, transfer ordered by MD. dao 10/10 12:19 Patient left the ED. dm14 19:04 Transferred by ground EMS Note: [facility] dm14 19:04 Condition: stable 19:04 Instructed on the need for transfer. Signatures: Dispatcher [employer] EDMS Олег Valencia PA PA jmm Martinez, Amelia as Williams, Irene, RN Wanda Puente [facility] Elvis Wiley RN RN jl7 Bro Cates RN RN sendyd3 Zuleika Louie Cheryl RN RN ca1 Tatum Ren RN RN ll2 Andrew Gonzalez 3 Cyndie Holley RN RN dm14 Corrections: (The following items were deleted from the chart) 10/09 19:38 14:00 Response: No adverse reaction; IV Status: Completed infusion ailin parisi
--- NOTE | 2020-10-09 21:49 | EDPHYS ---
Physician Documentation [facility] Name: Keisha Stanley Age: 50 yrs Sex: Female : 1970 Arrival Date: 10/09/2020 Time: 11:54 Bed 14 Private MD: ED Physician Claude Longo HPI: 10/09 13:14 This 50 yrs old Female presents to ER via Ambulatory with complaints of Mouth jmm Swelling. 13:14 The patient presents with swelling. Onset: The symptoms/episode began/occurred jmm gradually. 13:15 Duration: The symptoms are continuous. Modifying factors: The symptoms are alleviated jmm by nothing, the symptoms are aggravated by nothing. This is a 50 year old female with a history of COPD that presents to the ED with complaints of right sided facial pain and swelling. Patient had an abscess of the chin which was originally drained at [facility]. Patient was reevaluated 1 week ago here. Patient states since, she has developed swelling to the right side of the cheek. 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 - Social history:: Smoking status: Patient/guardian denies using tobacco, the patient reports quitting approximately 15 years ago. ROS: 13:15 Constitutional: Negative for fever, chills, and weight loss, Cardiovascular: Negative jmm for chest pain, palpitations, and edema, Respiratory: Negative for shortness of breath, cough, wheezing, and pleuritic chest pain. 13:15 Skin: Positive for swelling. 13:15 All other systems are negative. Exam: 13:15 Constitutional: This is a well developed, well nourished patient who is awake, alert, jmm and in no acute distress. 13:15 Chest/axilla: Normal chest wall appearance and motion. Cardiovascular: Regular rate and rhythm. No edema appreciated Respiratory: Normal respirations, no respiratory distress appreciated Abdomen/GI: Non distended, soft Back: Normal ROM Skin: General appearance color normal MS/ Extremity: Moves all extremities, no obvious deformities appreciated, no edema noted to the lower extremities Neuro: Awake and alert, normal gait Psych: Behavior is normal, Mood is normal, Patient is cooperative and pleasant 13:15 Head/face: swelling noted to the right inferior auricular region. . 13:15 ENT: Dental exam: gum swelling, that is moderate, specifically in the lower right lateral incisor (#26), pus expressed. Vital Signs: 12:17 BP 133 / 83; Pulse 108; Resp 16 S; Temp 97.1(TE); Pulse Ox 100% on R/A; Weight 63.5 kg ca1 (R); Height 5 ft. 2 in. (157.48 cm) (R); Pain 7/10; 13:32 BP 132 / 77; Pulse 75; Resp 15; Pulse Ox 99% ; jl7 14:59 BP 143 / 91; Pulse 81; Resp 16; Temp 97.6(TE); Pulse Ox 100% on R/A; mh5 18:30 BP 154 / 89; Pulse 75; Resp 15; Pulse Ox 100% ; Pain 6/10; jl7 19:40 BP 154 / 74; Pulse 120; Resp 20; Pulse Ox 100% on R/A; ll2 20:48 BP 154 / 74; Pulse 120; Resp 20; Pulse Ox 100% on R/A; ll2 21:45 BP 127 / 75; Pulse 73; Resp 18; Pulse Ox 100% on R/A; ll2 22:45 BP 127 / 88; Pulse 85; Resp 16; Pulse Ox 98% on R/A; ll2 23:45 BP 109 / 72; Pulse 87; Resp 20; Pulse Ox 97% on R/A; ll2 10/10 01:37 BP 108 / 72; Pulse 122; Resp 20; Pulse Ox 100% on R/A; ll2 08:46 BP 137 / 84; Pulse 80; Temp 98.6; Pulse Ox 96% ; Pain 6/10; dm14 10/09 12:17 Body Mass Index 25.61 (63.50 kg, 157.48 cm) ca1 MDM: 10/09 13:03 Patient medically screened. sylwia 21:45 Data reviewed: vital signs, nurses notes. Counseling: I had a detailed discussion with sylwia the patient and/or guardian regarding: the historical points, exam findings, and any diagnostic results supporting the discharge/admit diagnosis, lab results, radiology results, the need to transfer to another facility. ED course: I discussed the patient with Dr. Mane BAZAN and Dr. Cunningham hospitalist whom accepted the patient for transfer. . 10/09 13:10 Order name: CBC with Diff; Complete Time: 14:31 jmm 10/09 13:10 Order name: CMP; Complete Time: 13:49 jmm 10/09 13:10 Order name: Soft Tissue Neck W/Contr CT; Complete Time: 14:33 jmm 10/09 13:44 Order name: Manual Differential; Complete Time: 14:31 EDMS 10/09 18:33 Order name: SARS-COV-2 RT PCR; Complete Time: 18:40 EDMS 10/09 13:10 Order name: Saline Lock; Complete Time: 13:30 jmm Administered Medications: 13:30 Drug: fentaNYL (PF) 50 mcg Route: IVP; Site: right antecubital; jl7 14:57 Drug: LevaQUIN 750 mg Volume: 150 ml; Route: IVPB; Infused Over: 90 mins; Site: right jl7 antecubital; 15:20 Drug: vancoMYCIN 1 grams Route: IVPB; Infused Over: 2 hrs; Site: right antecubital; jl7 17:34 Drug: morphine 4 mg Route: IVP; Site: right antecubital; iw 21:02 Follow up: Response: No adverse reaction ll2 17:34 Drug: Benadryl 12.5 mg Route: IVP; Site: right antecubital; iw 21:02 Follow up: Response: No adverse reaction ll2 19:40 Drug: morphine 4 mg Route: IVP; Site: right antecubital; ll2 20:40 Follow up: Response: No adverse reaction ll2 19:40 Drug: Benadryl 12.5 mg Route: IVP; Site: right antecubital; ll2 20:40 Follow up: Response: No adverse reaction ll2 21:05 Drug: Dilaudid 0.5 mg Route: IVP; Site: right antecubital; ll2 22:05 Follow up: Response: No adverse reaction ll2 10/10 01:34 Drug: Dilaudid 0.5 mg Route: IVP; Site: right antecubital; ll2 02:30 Follow up: Response: No adverse reaction ll2 03:00 Drug: vancoMYCIN 1 grams Route: IVPB; Infused Over: 2 hrs; Site: right antecubital; ll2 04:23 Follow up: Response: No adverse reaction; IV Status: Completed infusion; IV Intake: ll2 250ml 08:05 Drug: Dilaudid 0.5 mg Route: IVP; Site: right antecubital; dm14 08:46 Follow up: BP 137 / 84; Pulse 80 bpm; Temp 98.6; Pulse Ox 96% ; Pain 6/10 Adult; dm14 Response: No adverse reaction; Pain is decreased Disposition: 17:10 Co-signature as Attending Physician, Claude Longo MD. rn Disposition: 10/09/20 21:48 Transfer ordered to Other Acute Care Facility. Diagnosis is Facial Abscess. - Reason for transfer: Higher level of care. - Accepting physician is Marisa. - Condition is Stable. - Problem is new. - Symptoms are unchanged. Signatures: Dispatcher [employer] [facility] Олег Valencia PA PA [facility] Elena Gaston, RN Claude Rangel MD MD rn Leal, Jahala, RN RN jl7 Kristie Lara RN RN ca1 Tatum Ren RN RN ll2 Cyndie Holley RN RN dm14 Corrections: (The following items were deleted from the chart) 10/09 17:50 16:26 CORONAVIRUS+MR.LAB.BRZ ordered. [facility] 10/10 12:19 10/09 21:48 10/09/2020 21:48 Transfer ordered to Other Acute Care Facility. Diagnosis dm14 is Facial Abscess. Reason for transfer: Higher level of care. Accepting physician is Marisa. Condition is Stable. Problem is new. Symptoms are unchanged. [facility]
[2020-10-10] MEDS ORDERED: HYDROMORPHONE HCL 0.5 MG/0.5 ML INJ ONE ×3 (02:02→08:18)
[2020-10-10] MEDS ORDERED: VANCOMYCIN 1 GM/VIAL ONE (02:23)
[2020-10-10] MEDS ORDERED: NA CHLORIDE 0.9% 250 ML ONE (02:52)
[2020-10-10 12:33] VITALS: TEMP 97.6
[2020-10-10 12:45] VITALS: BP 108/72; O2SAT 100
== END 2020-10-10 12:19 ==
LOC: ER 11:51
DX: L02.01 Cutaneous abscess of face (principal); Z20.822 Contact with and (suspected) exposure to COVID-19; Z23 Encounter for immunization; Z88.1 Allergy status to other antibiotic agents; Z88.5 Allergy status to narcotic agent
CPT/HCPCS: 96365; 85025; 36415; 80053; 70491; 90714; 96375; 99285; U0003; Q9967; J1200 ×2; J3010; J3370 ×2; J1170 ×3; J7050

== ENCOUNTER 2024-10-30 13:09 | Emergency (ER) | payer OTHER ==
[2024-10-30] MEDS ORDERED: LIDOCAINE 1% 20 ML MDV ONE (13:39)
[2024-10-30] MEDS ORDERED: TDAP (DIPHTH,PERTUSS(ACELL),TET VAC) 0.5 ML VIAL IMVAC ONE (13:39)
[2024-10-30] MEDS ORDERED: LIDOCAINE 2% W/EPI 1:200,000 MPF 20 ML VIAL IM ONE (13:45)
--- NOTE | 2024-10-30 14:15 | ER ---
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 Bleeding hb controlled. 13:24 Coronavirus screen: At this time, the client does not indicate any symptoms associated hb with coronavirus-19. Ebola Screen: No symptoms or risks identified at this time. Complicating Factors: There are no complicating factors for this patient. Initial Sepsis Screen: Does the patient meet any 2 criteria? No. Patient's initial sepsis screen is negative. Does the patient have a suspected source of infection? No. Patient's initial sepsis screen is negative. Risk Assessment: Do you want to hurt yourself or someone else? Patient reports no desire to harm self or others. Onset of symptoms was October 30, 2024. 13:24 Method Of Arrival: Ambulatory hb 13:24 Acuity: CARA 4 hb Triage Assessment: 13:24 General: Appears in no apparent distress. Behavior is calm, cooperative. Pain: Pain hb currently is 3 out of 10 on a pain scale. Neuro: Level of Consciousness is awake, alert, obeys commands, Oriented to person, place, time, situation. Cardiovascular: Patient's skin is warm and dry. Respiratory: Respiratory effort is even, unlabored, Respiratory pattern is regular, symmetrical. Injury Description: Laceration sustained to left hand is 2.6 to 7.5 cm long, not bleeding. Historical: - Allergies: 13:26 Amoxicillin; hb 13:26 Morphine; hb - PMHx: 13:26 Chronic pain; Hypothyroidism; COPD; PCOS; hb - Immunization history:: Last tetanus immunization: unknown. - Infectious Disease History:: Denies. - Social history:: Smoking status: Patient denies any tobacco usage or history of. Screenin:[address] [facility] ED Fall Risk Assessment (Adult) History of falling in the last 3 months, hb including since admission No falls in past 3 months (0 pts) Confusion or Disorientation No (0 pts) Intoxicated or Sedated No (0 pts) Impaired Gait No (0 pts) Mobility Assist Device Used No (0 pt) Altered Elimination No (0 pt) Score/Fall Risk Level 0 - 2 = Low Risk Oriented to surroundings, Maintained a safe environment, Educated pt \T\ family on fall prevention, incl call for assistance when getting out of bed. Abuse screen: Denies threats or abuse. Denies injuries from another. Nutritional screening: No deficits noted. Tuberculosis screening: No symptoms or risk factors identified. Assessment: 14:50 General: See triage assessment. hb Vital Signs: 13:24 BP 114 / 89; Pulse 83; Resp 16; Temp 97.9; Pulse Ox 98% on R/A; Weight 49.9 kg; Height hb 5 ft. 2 in. ; Pain 3/10; 13:24 Body Mass Index 20.12 (49.90 kg, 157.48 cm) hb 13:24 Pain Scale: Adult hb ED Course: 13:12 Patient arrived in ED. mr 13:14 Claudio Álvarez PA is PHCP. cp 13:14 Claude Longo MD is Attending Physician. cp 13:25 Triage completed. hb 13:26 Arm band placed on. hb 13:37 Josie Wang, JULISSA is Primary Nurse. hb 13:55 Patient has correct armband on for positive identification. Call light in reach. hb Provided Education on: use of call light . 13:55 No provider procedures requiring assistance completed. Patient did not have IV access hb during this emergency room visit. Administered Medications: 13:42 Drug: Boostrix Tdap IM 0.5 ml IM once; as a single dose Route: IM; Site: left deltoid; hb 14:49 Follow up: Response: (VIS) Vaccine information sheet provided today. Questions and/or hb concerns addressed. VIS edition date: Mar 24, 2021.; No adverse reaction 13:45 Drug: Lidocaine Infiltration (2 %) 10 ml 5 ml Infiltration once; to bedside with hb epinephrine Volume: 5 ml; Route: Infiltration; 14:49 Follow up: Response: No adverse reaction hb Medication: 14:50 VIS not applicable for this client. hb Outcome: 14:14 Discharge ordered by . cp 14:51 Discharged to home ambulatory, with family, hb 14:51 Condition: stable 14:51 Discharge instructions given to patient, Instructed on discharge instructions, follow up and referral plans. medication usage, wound care, Demonstrated understanding of instructions, follow-up care, medications, wound care, 14:51 Patient left the ED. hb Signatures: Anastasiia Avalos, Jeremie Reg mr Claudio Álvarez, Josie Day cp, RN RN hb Corrections: (The following items were deleted from the chart) 13:25 13:24 Chief complaint: hb hb
--- NOTE | 2024-10-30 14:15 | EDPHYS ---
Physician Documentation [facility] Name: Keisha Stanley Age: 54 yrs Sex: Female : 1970 Arrival Date: 10/30/2024 Time: 13:09 Bed 12 Private MD: ED Physician Claude Longo HPI: 10/30 13:30 This 54 yrs old Female presents to ER via Ambulatory with complaints of Laceration To cp Hand. 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 The laceration(s) is(are) located on the left hand. Onset: The symptoms/episode began/occurred just prior to arrival. Associated signs and symptoms: The patient has no apparent associated signs or symptoms. Historical: - Allergies: 13:26 Amoxicillin; hb 13:26 Morphine; hb - PMHx: 13:26 Chronic pain; Hypothyroidism; COPD; PCOS; hb - Immunization history:: Last tetanus immunization: unknown. - Infectious Disease History:: Denies. - Social history:: Smoking status: Patient denies any tobacco usage or history of. ROS: 13:33 Skin: Positive for laceration(s), of the dorsal side of left hand, cp 13:33 Constitutional: Negative for body aches, chills, fever, poor PO intake, cp 13:33 Neuro: Negative for numbness, weakness, 13:33 All other systems are negative, Exam: 13:40 Constitutional: The patient appears in no acute distress, alert, awake, non-toxic, well cp developed, well nourished, 13:40 Head/Face: Normocephalic, atraumatic. cp 13:40 Eyes: Periorbital structures: appear normal, Conjunctiva: normal, no exudate, no injection, Lids and lashes: appear normal, bilaterally, 13:40 ENT: External ear(s): are unremarkable, Nose: is normal, Mouth: Lips: moist, Oral mucosa: moist, Posterior pharynx: Airway: no evidence of obstruction, patent, 13:40 Chest/axilla: Inspection: normal, 13:40 Cardiovascular: Rate: normal, 13:40 Respiratory: the patient does not display signs of respiratory distress, Respirations: normal, no use of accessory muscles, no retractions, labored breathing, is not present, Breath sounds: are clear throughout, no decreased breath sounds, 13:40 Musculoskeletal/extremity: Extremities: noted in the dorsal side of left hand: linear laceration extending from proximal phalanx to first metacarpal dorsal side of left hand, mild bleeding, tendon intact, normal AROM and sensation of left thumb, Vital Signs: 13:24 BP 114 / 89; Pulse 83; Resp 16; Temp 97.9; Pulse Ox 98% on R/A; Weight 49.9 kg; Height hb 5 ft. 2 in. ; Pain 3/10; 13:24 Body Mass Index 20.12 (49.90 kg, 157.48 cm) hb 13:24 Pain Scale: Adult hb Laceration: 14:11 Wound Repair of 4.5cm ( 1.8in ) subcutaneous laceration to dorsal side of left hand and cp proximal thumb and first metacarpal. Linear shaped.. Distal neuro/vascular/tendon intact. Anesthesia: Wound infiltrated with 3 mls of 2% lidocaine. Wound prep: Simple cleansing by me, Wound irrigation by me. Skin closed with 6 4-0 Prolene using interrupted sutures and sterile technique. Dressed with Bacitracin, 4x4's. Patient tolerated well. MDM: 13:21 Medical Screening Exam initiated cp 13:45 Differential diagnosis: superficial laceration, tendon injury, vascular injury, open cp fracture. 14:14 Data reviewed: vital signs, nurses notes, and as a result, I will discharge patient. cp 14:14 I considered the following discharge prescriptions or medication management in the cp emergency department Medications were administered in the Emergency Department. See MAR. Care significantly affected by the following chronic conditions: Chronic Obstructive Pulmonary Disease. Counseling: I had a detailed discussion with the patient and/or guardian regarding the historical points, exam findings, and any diagnostic results supporting the discharge/admit diagnosis, the need for outpatient follow up, a family practitioner, to return to the emergency department if symptoms worsen or persist or if there are any questions or concerns that arise at home. Response to treatment: the patient's symptoms have markedly improved after treatment, and as a result, I will discharge patient. 10/30 13:27 Order name: Dressing - Wound; Complete Time: 14:49 cp 10/30 13:27 Order name: Gloves, Sterile; Complete Time: 14:49 cp 10/30 13:27 Order name: Setup Suture Tray; Complete Time: 14:49 cp 10/30 13:27 Order name: Wound Care: clean and irrigate wound; Complete Time: 14:49 cp 10/30 14:11 Order name: Wound dressing; Complete Time: 14:49 cp Administered Medications: 13:42 Drug: Boostrix Tdap IM 0.5 ml IM once; as a single dose Route: IM; Site: left deltoid; hb 14:49 Follow up: Response: (VIS) Vaccine information sheet provided today. Questions and/or hb concerns addressed. VIS edition date: Mar 24, 2021.; No adverse reaction 13:45 Drug: Lidocaine Infiltration (2 %) 10 ml 5 ml Infiltration once; to bedside with hb epinephrine Volume: 5 ml; Route: Infiltration; 14:49 Follow up: Response: No adverse reaction hb Disposition: 15:25 Co-signature as Attending Physician, Claude Longo MD I reviewed the patient's care rn provided by the Advanced Practice Provider and agree with the diagnosis and treatment plan. 10/31 00:04 Chart complete. cp Disposition Summary: 10/30/24 14:14 Discharge Ordered Notes: Location: Home cp Problem: new cp Symptoms: have improved cp Condition: Stable cp Diagnosis - Laceration without foreign body of left hand, initial encounter cp Followup: cp - With: Private Physician - When: 10 - 14 days - Reason: Staple/Suture removal Discharge Instructions: - Discharge Summary Sheet cp - Laceration Care, Adult cp - Sutured Wound Care cp Forms: - Medication Reconciliation Form cp - Antibiotic Education cp - Prescription Opioid Use cp - Patient Portal Instructions cp - Leadership Thank You Letter cp Signatures: Claude Longo MD MD rn Page, Corey, PA PA cp Josie Wang, RN RN hb
[2024-10-30 14:55] VITALS: BP 114/89; TEMP 97.9; O2SAT 98
== END 2024-10-30 14:51 | disposition home or self-care (01) ==
LOC: ER 13:09
DX: S61.412A Laceration without foreign body of left hand, initial encounter (principal)
CPT/HCPCS: 96372; 99284; J2003